=== PATIENT | male | born 1985 | race Two or more races ===

== ENCOUNTER 2017-06-20 15:05 | Inpatient (IN) | payer OTHER ==
[~2017-06-20] VITALS: Ht 165.1 cm; Wt 83.9 kg
[2017-06-20 16:40] VITALS: BP 132/67
--- NOTE | 2017-06-20 16:40 | NUR ---
MS RN OPENING NOTES PATIENT ARRIVED VIA GURNEY FROM [facility]. RECEIVED PATIENT IN STABLE CONDITION. IN NO APPARENT DISTRESS. BEDSIDE RAILS ARE UPX2. BED IS LOCKED AND LOWERED. CALL LIGHT IS WITHIN REACH. WILL CONTINUE TO MONITOR.
[2017-06-20] MEDS ORDERED: IV NS 0.9% 1,000 ML IV PRN (18:25)
[2017-06-20] MEDS ORDERED: Z GUARD REMEDY 2 OZ OINT TP PRN (18:30)
[2017-06-20] MEDS ORDERED: MAGNESIUM HYDROXIDE 30 ML UDC PO PRN (18:30)
[2017-06-20] MEDS ORDERED: MAG HYDROX/AL HYDROX/SIMETH 30 ML UDC PO PRN (18:30)
[2017-06-20] MEDS ORDERED: HYDROCODONE/APAP 5/325MG 1 EACH TABLET PO PRN (18:30)
[2017-06-20] MEDS ORDERED: ONDANSETRON HCL/PF 4 MG/2 ML VIAL IVP PRN (18:30)
[2017-06-20] MEDS ORDERED: ACETAMINOPHEN 325 MG TABLET PO PRN (18:30)
[2017-06-20 18:59] LABS: CREATININE 0.7 mg/dL (0.6-1.3); POTASSIUM 3.7 mmol/L (3.5-5.1)
[2017-06-20 19:02] LABS: BASOPHILS % (AUTO) 0.1 % (0.0-2.0); EOSINOPHILS % (AUTO) 0.7 % (0.0-6.0); HEMATOCRIT 25 % (39-51); HEMOGLOBIN 8.1 g/dL (13.5-17.5); LYMPHOCYTES # (AUTO) 2.5 /CMM (0.8-4.8); LYMPHOCYTES % (AUTO) 14.6 % (20.0-44.0); MEAN CORPUSCULAR HGB CONC 32 g/dl (31.0-36.0); MEAN CORPUSCULAR VOLUME 74 fL (80-96); MONOCYTES # (AUTO) 1.3 /CMM (0.1-1.30); MONOCYTES % (AUTO) 7.8 % (2.0-12.0); NEUTROPHILS # (AUTO) 13.2 /CMM (1.8-8.9); NEUTROPHILS % (AUTO) 76.8 % (43.0-81.0); PLATELET COUNT (AUTO) 290 /CMM (150-450); RDW COEFFICIENT OF VARIATION 24.6 (11.5-15.0); RED BLOOD CELL COUNT(AUTO) 3.43 MIL/uL (4.5-6.0); WHITE BLOOD COUNT (AUTO) 17.2 K/uL (4.3-11.0)
--- NOTE | 2017-06-20 19:20 | NUR ---
MS RN CLOSING NOTES PATIENT IN STABLE CONDITION. IN NO APPARENT DISTRESS. BEDSIDE RAILS ARE UPX2. BED IS LOCKED AND LOWERED. CALL LIGHT IS WITHIN REACH. IV LINE IS INTACT AND PATENT. WILL ENDORSE CARE TO INSTRUMENT REPAIRER [employer] NURSE FOR MARÍA.
--- NOTE | 2017-06-20 19:45 | NUR ---
RN OPENING NOTES RECEIVED REPORT FROM DAYSHIFT RN CHERYL. FOUND Pt AWAKE, RESTING IN BED. FAMILY VISITING AT BEDSIDE. NO S/S OF ACUTE DISTRESS OR SOB NOTED. Pt IS A/OX4, VERBAL, ABLE TO MAKE NEEDS KNOWN. NO C/O PAIN AT THIS TIME. IV ACCESS ON RAC #20G, SL. SAFETY MEASURES IN PLACE. BED LOW, LOCKED, HOB ELEVATED, SIDE RAILS UP, CALL LIGHT AND BEDSIDE TABLE WITHIN REACH. WILL CONTINUE TO MONITOR Pt THROUGHOUT THE NIGHT FOR SAFETY.
[2017-06-20 20:00] VITALS: BP 108/75
[2017-06-20 20:47] LABS: EOSINOPHILS % (MANUAL) 1 % (0-4); LYMPHOCYTES % (MANUAL) 18 % (16-48); MONOCYTES % (MANUAL) 4 % (0-11.0); NEUTROPHILS % (MANUAL) 77 (42-76)
--- NOTE | 2017-06-21 06:45 | NUR ---
RN CLOSING NOTES NO SIGNIFICANT CHANGES IN Pt's CONDITION. Pt REMAINS STABLE AT THIS TIME. NO S/S OF ACUTE DISTRESS OR SOB NOTED DURING THE NIGHT. ALL NEEDS MET AND ATTENDED TO. SAFETY MEASURES IN PLACE. WILL ENDORSE TO DAYSHIFT RN FOR Pt's MARÍA.
[2017-06-21] MEDS ORDERED: OMEP20TA5 PO (07:14)
[2017-06-21] MEDS ORDERED: HYDR-3026 PO (07:14)
[2017-06-21 07:25] LABS: BASOPHILS # (AUTO) 0.1 /CMM (0.0-0.2); BASOPHILS % (AUTO) 0.5 % (0.0-2.0); EOSINOPHILS % (AUTO) 1.2 % (0.0-6.0); HEMATOCRIT 25 % (39-51); HEMOGLOBIN 8.1 g/dL (13.5-17.5); LYMPHOCYTES # (AUTO) 2.7 /CMM (0.8-4.8); LYMPHOCYTES % (AUTO) 17.7 % (20.0-44.0); MEAN CORPUSCULAR HGB CONC 32 g/dl (31.0-36.0); MEAN CORPUSCULAR VOLUME 75 fL (80-96); MONOCYTES # (AUTO) 1.3 /CMM (0.1-1.30); MONOCYTES % (AUTO) 8.7 % (2.0-12.0); NEUTROPHILS % (AUTO) 71.9 % (43.0-81.0); PLATELET COUNT (AUTO) 283 /CMM (150-450); RDW COEFFICIENT OF VARIATION 23.8 (11.5-15.0); RED BLOOD CELL COUNT(AUTO) 3.34 MIL/uL (4.5-6.0); WHITE BLOOD COUNT (AUTO) 15.3 K/uL (4.3-11.0)
[2017-06-21] MEDS ORDERED: PANTOPRAZOLE 40 MG TABLET.DR PO SCH (07:30)
--- NOTE | 2017-06-21 07:36 | NUR ---
MS RN OPENING NOTES RECEIVED PATIENT IN STABLE CONDITION. IN NO APPARENT DISTRESS. BEDSIDE RAILS ARE UPX2. BED IS LOCKED AND LOWERED. CALL LIGHT IS WITHIN REACH. IV LINE IS INTACT AND PATENT. WILL CONTINUE TO MONITOR.
[2017-06-21 07:38] LABS: CALCIUM, SERUM 8.7 mg/dL (8.5-10.1); CREATININE 0.6 mg/dL (0.6-1.3); MAGNESIUM 1.9 mg/dL (1.8-2.4); PHOSPHORUS 3.7 mg/dL (2.5-4.9); POTASSIUM 3.7 mmol/L (3.5-5.1)
[2017-06-21] MEDS ORDERED: POLY17PO4 PO (07:38)
[2017-06-21] MEDS ORDERED: ONDA4TAB8 PO (07:38)
[2017-06-21] MEDS ORDERED: CHLO25CA22 PO (07:38)
[2017-06-21 08:00] VITALS: BP 129/60
[2017-06-21] MEDS ORDERED: ONDANSETRON 4 MG TAB.RAPDIS PO PRN (13:30)
[2017-06-21] MEDS ORDERED: hydrOXYzine PAMOATE 25 MG CAPSULE PO PRN (14:30)
--- NOTE | 2017-06-21 15:06 | NUR ---
MS TRANS ROUTER NOTES PATIENT DISCHARGED IN STABLE CONDITION. IN NO APPARENT DISTRESS. EXITCARE WAS PROVIDED TO THE PATIENT. PRESCRIPTION WAS GIVEN TO THE PATIENT. IV LINE WAS REMOVED. ID BAND WAS REMOVED. BELONGINGS WERE VERIFIED. ALL NEEDS WERE MET. PATIENT WAS ESCORTED OUT OF THE FACILITY BY BEL FRIEND. PATIENT IN COMPANY OF FATHER WHO WILL DRIVE HIM HOME.
[2017-06-21] MEDS ORDERED: Medication Not On Formulary EA (Omeprazole 20 MG) PO SCH (17:00)
[2017-06-21] MEDS ORDERED: CHLORDIAZEPOXIDE HCL 25 MG CAPSULE PO SCH (21:00)
[2017-06-22] MEDS ORDERED: POLYETHYLENE GLYCOL 3350 17 GM POWD.PACK PO SCH (09:00)
== END 2017-06-21 15:06 | disposition home or self-care (01) | DRG 723 ==
LOC: MEDSG2 16:19
PROVIDERS: ADMIT Internal Medicine; ATTEND Internal Medicine
DX: B34.9 Viral infection, unspecified (principal); L80 Vitiligo
CPT/HCPCS: 36415; 80048-TC; 83735-TC; 84100-TC; 85025-TC; 85652-TC; 87081-TC; A4606; J7030; Z7610

== ENCOUNTER 2018-05-30 15:50 | Inpatient (IN) | payer OTHER ==
[~2018-05-30] VITALS: Ht 165.1 cm; Wt 84.4 kg
[~2018-05-30 15:50] MED LIST: CHLO25CA22 PO; HYDR-3026 PO; OMEP20TA5 PO; ONDA4TAB8 PO; POLY17PO4 PO
[2018-05-30] MEDS ORDERED: MAGNESIUM HYDROXIDE 30 ML UDC PO PRN (23:30)
[2018-05-30] MEDS ORDERED: ONDANSETRON HCL/PF 4 MG/2 ML VIAL IVP PRN (23:30)
[2018-05-30] MEDS ORDERED: MAG HYDROX/AL HYDROX/SIMETH 30 ML UDC PO PRN (23:30)
[2018-05-30] MEDS ORDERED: OCTREOTIDE 1,250 MCG in IV NS 0.9% 247.5 ML IV PRN (23:30)
[2018-05-30] MEDS ORDERED: LORAZEPAM INJ 2 MG/ML VIAL IV PRN (23:30)
[2018-05-30] MEDS ORDERED: Z GUARD REMEDY 2 OZ OINT TP PRN (23:30)
[2018-05-30] MEDS: PANTOPRAZOLE 40 MG VIAL IV SCH (23:42)
[2018-05-30] MEDS ORDERED: hydrOXYzine 10 MG TABLET PO PRN (23:45)
[2018-05-30 23:47] LABS: BASOPHILS % (AUTO) 0.5 % (0.0-2.0); EOSINOPHILS % (AUTO) 0.4 % (0.0-6.0); HEMATOCRIT 32 % (39-51); HEMOGLOBIN 10.6 g/dL (13.5-17.5); LYMPHOCYTES # (AUTO) 1.9 /CMM (0.8-4.8); LYMPHOCYTES % (AUTO) 30.1 % (20.0-44.0); MEAN CORPUSCULAR HGB CONC 33 g/dl (31.0-36.0); MEAN CORPUSCULAR VOLUME 80 fL (80-96); MONOCYTES # (AUTO) 0.6 /CMM (0.1-1.30); MONOCYTES % (AUTO) 8.6 % (2.0-12.0); NEUTROPHILS # (AUTO) 3.9 /CMM (1.8-8.9); NEUTROPHILS % (AUTO) 60.4 % (43.0-81.0); PLATELET COUNT (AUTO) 80 /CMM (150-450); RED BLOOD CELL COUNT(AUTO) 4.01 MIL/uL (4.5-6.0); WHITE BLOOD COUNT (AUTO) 6.5 K/uL (4.3-11.0)
[2018-05-30 23:54] LABS: CREATININE 0.6 mg/dL (0.6-1.3); POTASSIUM 3.7 mmol/L (3.5-5.1)
[2018-05-31] LABS: ALBUMIN 3.5 g/dL (3.4-5.0); BILIRUBIN,TOTAL 1.9 mg/dL (0.2-1.0); TOTAL PROTEIN, SERUM 7.8 g/dL (6.4-8.2)
[2018-05-31 00:08] LABS: THYROID STIMULATING HORMONE 0.249 uIU/mL (0.358-3.74)
[2018-05-31] MEDS ORDERED: OCTREOTIDE 1,250 MCG in IV NS 0.9% 247.5 ML IV PRN (02:30)
[2018-05-31] MEDS ORDERED: OCTREOTIDE 100 MCG/ML VIAL ONE (03:10)
[2018-05-31] MEDS ORDERED: OCTREOTIDE 500 MCG/ML VIAL ONE (03:17)
[2018-05-31] MEDS: OCTREOTIDE 1,250 MCG in IV NS 0.9% 247.5 ML IV PRN (03:38)
[2018-05-31] MEDS: CHLORDIAZEPOXIDE HCL 25 MG CAPSULE PO SCH ×3 (04:27→21:17)
[2018-05-31 06:31] LABS: BASOPHILS % (AUTO) 0.7 % (0.0-2.0); EOSINOPHILS % (AUTO) 0.7 % (0.0-6.0); HEMATOCRIT 33 % (39-51); LYMPHOCYTES # (AUTO) 1.7 /CMM (0.8-4.8); LYMPHOCYTES % (AUTO) 33.9 % (20.0-44.0); MEAN CORPUSCULAR HGB CONC 34 g/dl (31.0-36.0); MEAN CORPUSCULAR VOLUME 79 fL (80-96); MONOCYTES # (AUTO) 0.5 /CMM (0.1-1.30); MONOCYTES % (AUTO) 10.4 % (2.0-12.0); NEUTROPHILS # (AUTO) 2.7 /CMM (1.8-8.9); NEUTROPHILS % (AUTO) 54.3 % (43.0-81.0); PLATELET COUNT (AUTO) 79 /CMM (150-450); RED BLOOD CELL COUNT(AUTO) 4.15 MIL/uL (4.5-6.0); WHITE BLOOD COUNT (AUTO) 5.1 K/uL (4.3-11.0)
[2018-05-31 06:53] LABS: CALCIUM, SERUM 8.2 mg/dL (8.5-10.1); CREATININE 0.5 mg/dL (0.6-1.3); MAGNESIUM 1.7 mg/dL (1.8-2.4); PHOSPHORUS 3.7 mg/dL (2.5-4.9); POTASSIUM 3.7 mmol/L (3.5-5.1)
[2018-05-31 07:39] VITALS: BP 145/70
[2018-05-31] MEDS: PANTOPRAZOLE 40 MG VIAL IV SCH ×2 (09:23→17:44)
[2018-05-31] MEDS: Magnesium 1GM/D5W 100ML PREMIX 100 ML IV SCH ×2 (09:40→10:55)
[2018-05-31] MEDS ORDERED: PHYTONADIONE INJ 10 MG/1 ML AMPUL SQ ONE (15:00)
[2018-05-31 20:00] VITALS: BP 143/63
[2018-06-01] MEDS: CHLORDIAZEPOXIDE HCL 25 MG CAPSULE PO SCH ×3 (05:00→21:12)
[2018-06-01 06:24] LABS: BASOPHILS % (AUTO) 0.6 % (0.0-2.0); HEMATOCRIT 34 % (39-51); HEMOGLOBIN 11.4 g/dL (13.5-17.5); LYMPHOCYTES # (AUTO) 0.9 /CMM (0.8-4.8); LYMPHOCYTES % (AUTO) 20.3 % (20.0-44.0); MEAN CORPUSCULAR HGB CONC 33 g/dl (31.0-36.0); MEAN CORPUSCULAR VOLUME 80 fL (80-96); MONOCYTES # (AUTO) 0.4 /CMM (0.1-1.30); MONOCYTES % (AUTO) 9.1 % (2.0-12.0); NEUTROPHILS # (AUTO) 3.1 /CMM (1.8-8.9); PLATELET COUNT (AUTO) 61 /CMM (150-450); WHITE BLOOD COUNT (AUTO) 4.4 K/uL (4.3-11.0)
[2018-06-01 06:49] LABS: ALBUMIN 3.6 g/dL (3.4-5.0); BILIRUBIN,TOTAL 3.7 mg/dL (0.2-1.0); CALCIUM, SERUM 8.8 mg/dL (8.5-10.1); CREATININE 0.6 mg/dL (0.6-1.3); MAGNESIUM 1.8 mg/dL (1.8-2.4); PHOSPHORUS 3.5 mg/dL (2.5-4.9); POTASSIUM 3.9 mmol/L (3.5-5.1); TOTAL PROTEIN, SERUM 8.2 g/dL (6.4-8.2)
[2018-06-01 08:00] VITALS: BP 141/73
[2018-06-01] MEDS ORDERED: IV NS 0.9% 1,000 ML IV PRN (10:00)
[2018-06-01] MEDS: PANTOPRAZOLE 40 MG VIAL IV SCH ×2 (10:06→17:05)
[2018-06-01] MEDS: SUCRALFATE 1 G TABLET PO SCH ×3 (12:54→21:12)
[2018-06-01 16:00] VITALS: BP 140/82
[2018-06-01] MEDS: OCTREOTIDE 1,250 MCG in IV NS 0.9% 247.5 ML IV PRN (18:39)
[2018-06-01 20:00] VITALS: BP 138/80
[2018-06-01 20:18] VITALS: BP 138/80
[2018-06-02] MEDS: CHLORDIAZEPOXIDE HCL 25 MG CAPSULE PO SCH ×2 (05:02→13:43)
[2018-06-02 07:37] LABS: ALBUMIN 3.7 g/dL (3.4-5.0); BILIRUBIN,TOTAL 3.5 mg/dL (0.2-1.0); CREATININE 0.6 mg/dL (0.6-1.3); MAGNESIUM 1.8 mg/dL (1.8-2.4); POTASSIUM 3.6 mmol/L (3.5-5.1); TOTAL PROTEIN, SERUM 8.2 g/dL (6.4-8.2)
[2018-06-02 07:39] LABS: BASOPHILS % (AUTO) 0.5 % (0.0-2.0); EOSINOPHILS % (AUTO) 2.2 % (0.0-6.0); HEMATOCRIT 33 % (39-51); HEMOGLOBIN 11.2 g/dL (13.5-17.5); LYMPHOCYTES # (AUTO) 1.1 /CMM (0.8-4.8); LYMPHOCYTES % (AUTO) 26.8 % (20.0-44.0); MEAN CORPUSCULAR HGB CONC 34 g/dl (31.0-36.0); MEAN CORPUSCULAR VOLUME 80 fL (80-96); MONOCYTES # (AUTO) 0.3 /CMM (0.1-1.30); MONOCYTES % (AUTO) 7.9 % (2.0-12.0); NEUTROPHILS # (AUTO) 2.6 /CMM (1.8-8.9); NEUTROPHILS % (AUTO) 62.6 % (43.0-81.0); PLATELET COUNT (AUTO) 55 /CMM (150-450); WHITE BLOOD COUNT (AUTO) 4.2 K/uL (4.3-11.0)
[2018-06-02 08:00] VITALS: BP 139/84
[2018-06-02 09:39] LABS: EOSINOPHILS % (MANUAL) 1 % (0-4); LYMPHOCYTES % (MANUAL) 35 % (16-48); MONOCYTES % (MANUAL) 6 % (0-11.0); NEUTROPHILS % (MANUAL) 58 (42-76)
[2018-06-02] MEDS: SUCRALFATE 1 G TABLET PO SCH ×3 (09:50→17:42)
[2018-06-02] MEDS: PANTOPRAZOLE 40 MG VIAL IV SCH ×2 (09:50→17:00)
[2018-06-02] MEDS ORDERED: SUCR1TAB PO (12:37)
[2018-06-02] MEDS ORDERED: PANT40VI PO (12:37)
[2018-06-02 16:00] VITALS: BP 144/85
== END 2018-06-02 17:49 | disposition home or self-care (01) | DRG 243 ==
LOC: TELE 21:42 → MED 05-31 08:45
PROVIDERS: ADMIT Nurse Practitioner Acute Care; ATTEND Hospitalist
PROC: 0DB78ZX Excision of Stomach, Pylorus, Via Natural or Artificial Opening Endoscopic, Diagnostic (ICD-10-PCS; principal; 2018-06-01)
DX: K20.8 Other esophagitis (principal); D61.818 Other pancytopenia; D69.59 Other secondary thrombocytopenia; D62 Acute posthemorrhagic anemia; K70.30 Alcoholic cirrhosis of liver without ascites; L80 Vitiligo; K29.80 Duodenitis without bleeding; K44.9 Diaphragmatic hernia without obstruction or gangrene; E80.6 Other disorders of bilirubin metabolism; K31.9 Disease of stomach and duodenum, unspecified
CPT/HCPCS: 36415; 76700-TC; 80048-TC; 80053-TC; 80061-TC; 80305; 83690-TC; 83735-TC; 84100-TC; 84443-TC; 85025-TC; 85730-TC; 87081-TC; 88305-TC; 88313-TC; 88342; C9113; G0378; G0480; J2060; J2354; J2405; J2704; J3430; J3475; J3490; J7050